=== PATIENT | female | born 1965 | race Caucasian/White ===

== ENCOUNTER 2022-06-17 15:40 | Emergency (ER) | payer MEDICAID ==
[~2022-06-17] VITALS: Ht 149.9 cm; Wt 64.0 kg
[2022-06-17] MEDS ORDERED: VALA100044 MT (17:43)
[2022-06-17] MEDS ORDERED: P50 MT (17:43)
[2022-06-17 19:18] VITALS: BP 135/83
== END 2022-06-17 19:20 | disposition home or self-care (01) ==
LOC: ER 15:57
DX: G51.0 Bell's palsy (principal)
CPT/HCPCS: 99284